=== PATIENT | female | born 2000 | race Hispanic/Latino ===

== ENCOUNTER 2022-04-03 17:18 | Emergency (ER) | payer OTHER ==
[~2022-04-03] VITALS: Ht 162.6 cm; Wt 81.6 kg
[2022-04-03 17:53] LABS: APPEARANCE,URINE CLOUDY (CLEAR); BILIRUBIN,URINE NEGATIVE (NEGATIVE); COLOR,URINE YELLOW (YELLOW); GLUCOSE, URINE (UA) NEGATIVE (NEGATIVE); KETONES,URINE NEGATIVE (NEGATIVE); LEUKOCYTE ESTERASE ,URINE NEGATIVE (NEGATIVE); NITRATE,URINE NEGATIVE (NEGATIVE); OCCULT BLOOD,URINE LARGE (NEGATIVE); PH,URINE 7.5 (5.0-8.0); PROTEIN,URINE NEGATIVE (NEGATIVE); UROBILINOGEN,URINE 0.2 mg/dL (0.2-1.0)
[2022-04-03 18:03] LABS: BASOPHILS % (AUTO) 0.3 % (0.0-5.0); EOSINOPHILS % (AUTO) 1.6 % (0.0-8.0); HEMATOCRIT 38.1 % (36-48); LYMPHOCYTES % (AUTO) 15.4 % (21.0-51.0); MEAN CORPUSCULAR HEMOGLOBIN 27.2 pg (27.0-33.0); MEAN CORPUSCULAR HGB CONC 32.8 g/dL (32.0-36.0); MEAN CORPUSCULAR VOLUME 82.8 fL (80-100); MONOCYTES % (AUTO) 5.6 % (3.0-13.0); NEUTROPHILS % (AUTO) 76.8 % (40.0-77.0); PLATELET COUNT (AUTO) 255 K/uL (130-400); WHITE BLOOD COUNT (AUTO) 10.3 K/uL (4.8-10.8)
[2022-04-03 18:05] LABS: BACTERIA,URINE Few /HPF (None Seen); MUCUS,URINE Rare LPF (None Seen); RBC,URINE 26-50 /HPF (0-1); SQUAMOUS EPITHELIAL CELL,UR 0-2 /HPF (0-2)
[2022-04-03] MEDS ORDERED: CEFTRIAXONE 1G VIAL ONE (18:13)
[2022-04-03 18:15] LABS: CREATININE 0.7 mg/dL (0.5-1.5); POTASSIUM 3.4 mmol/L (3.5-5.1)
[2022-04-03 18:26] LABS: ALBUMIN 3.9 g/dL (3.5-5.0); BILIRUBIN,TOTAL 0.2 mg/dL (0.2-1.0); TOTAL PROTEIN, SERUM 7.7 g/dL (6.0-8.3)
[2022-04-03] MEDS ORDERED: CEFTRIAXONE 1G VIAL IM ONE (18:30)
[2022-04-03] MEDS ORDERED: CEPH500B PO (18:57)
[2022-04-03 19:25] VITALS: BP 125/66
== END 2022-04-03 19:26 | disposition home or self-care (01) ==
LOC: EDH 17:18
DX: O46.91 Antepartum hemorrhage, unspecified, first trimester (principal); O23.41 Unspecified infection of urinary tract in pregnancy, first trimester; N39.0 Urinary tract infection, site not specified; Z3A.01 Less than 8 weeks gestation of pregnancy
CPT/HCPCS: 36415; 76801; 80053; 81001; 84702; 85025; 86900; 86901; 96372; 99284; J0696

== ENCOUNTER 2023-08-25 15:37 | Emergency (ER) | payer MEDICAID ==
[~2023-08-25] VITALS: Ht 160 cm; Wt 98.0 kg
[~2023-08-25 15:37] MED LIST: CEPH500B PO
[2023-08-25 16:00] VITALS: BP 160/79; PULSE 95; RESP 18; O2SAT 98
[2023-08-25] MEDS ORDERED: ACETAMINOPHEN 500 MG TABLET PO ONE (16:30)
[2023-08-25] MEDS ORDERED: CEFTRIAXONE 1G VIAL IM ONE (16:30)
[2023-08-25] MEDS ORDERED: OFLO5DRO21 OT (17:59)
[2023-08-25] MEDS ORDERED: AMOX1TAB16 PO (17:59)
== END 2023-08-25 18:07 | disposition home or self-care (01) ==
LOC: EDH 15:37
DX: O26.893 Other specified pregnancy related conditions, third trimester (principal); H60.91 Unspecified otitis externa, right ear
CPT/HCPCS: 99283; 96372; J0696; 90471